=== PATIENT | female | born 1995 | race American Indian/Alaskan Native ===

== ENCOUNTER 2017-05-02 06:10 | Outpatient (CLI) | payer OTHER ==
[2017-05-02] MEDS ORDERED: LACTATED RINGERS 1,000 ML IV ONE (06:19)
[2017-05-02] MEDS ORDERED: BICITRA PO ONE (06:52)
[2017-05-02 07:01] LABS: Bilirubin,Urine NEG (Negative); Blood,Urine NEG (Negative); Color,Urine Yellow (Yellow); Mucus,Urine FEW /HPF; Nitrite,Urine NEG (Negative); Protein,Urine <15 mg/dL mg/dL (Negative); Urobilinogen,Urine < 2.0 mg/dL (<2.0)
[2017-05-02 08:04] VITALS: BP 105/63
== END 2017-05-02 08:04 | disposition home or self-care (01) ==
LOC: TRG 06:10
PROVIDERS: ATTEND Obstetrics & Gynecology
DX: O42.92 Full-term premature rupture of membranes, unspecified as to length of time between rupture and onset of labor (principal); O26.893 Other specified pregnancy related conditions, third trimester; M54.9 Dorsalgia, unspecified; R10.9 Unspecified abdominal pain; Z3A.23 23 weeks gestation of pregnancy
CPT/HCPCS: 59025; 81001

== ENCOUNTER 2017-06-11 20:12 | Outpatient (CLI) | payer OTHER ==
[2017-06-11 20:56] VITALS: BP 129/73
== END 2017-06-11 22:00 | disposition home or self-care (01) ==
LOC: TRG 20:12
PROVIDERS: ATTEND Obstetrics & Gynecology
DX: O47.03 False labor before 37 completed weeks of gestation, third trimester (principal); Z3A.28 28 weeks gestation of pregnancy
CPT/HCPCS: 59025